=== PATIENT | female | born 1940 | race Caucasian/White ===

== ENCOUNTER → 2020-10-30 12:54 | Outpatient (CLI) | payer MEDICARE, SELFPAY ==
--- NOTE | ~2020-10-30 | CT_ITS ---
EXAMINATION: CT lung screening DATE: 10/30/2020 13:15 INDICATION: Personal history of nicotine dependence TECHNIQUE: Computed tomography (CT) of the chest was performed without intravenous contrast. The dose -length product was 38.20 mGy-cm. Automated exposure control and iterative reconstruction technique w ere employed. COMPARISON: CT dated 12/18/2019 FINDINGS: No thoracic lymphadenopathy. There is atherosclerosis. No lymphadenopathy. Heart size hoda l. No significant pleural or pericardial effusion. There is mild emphysema. There are scattered pulmo nary nodules measuring 4 mm or less. No endobronchial lesions. No endobronchial lesions. There is dep endent atelectasis. There is no apical pleural thickening/scarring. There is mild thoracic spondylosi s with accentuated kyphosis. There is mild loss of vertebral body height at T7 and T8, likely chronic . IMPRESSION: 1. Lung-RADS category 2: Benign appearance or behavior. Continue annual screening with noncontrast lo w-dose chest CT in 12 months. Reviewed, dictated and finalized at location B. IMPRESSION: 1. Lung-RADS category 2: Benign appearance or behavior. Continue annual screeni ng with noncontrast low-dose chest CT in 12 months.
== END ==
PROVIDERS: Visit Provider Nurse Practitioner Family
DX: Z87.891 Personal history of nicotine dependence (principal)
CPT/HCPCS: 71271

== ENCOUNTER → 2020-11-09 13:44 | Outpatient (CLI) | payer MEDICARE, SELFPAY ==
--- NOTE | ~2020-11-09 | US_ITS ---
US renal BI 11/09/2020 14:19 Procedure: Realtime transabdominal ultrasound of the kidneys and bladder. Indication: Chronic kidney disease. Comparison: No prior studies for comparison. Findings: Renal echotexture is normal bilaterally without hydronephrosis, contour deforming mass or r enal calculus. The right kidney measures 7.7 cm and left kidney measures 7.6 cm. Bladder within norm al limits. Impression: 1: Unremarkable renal ultrasound. No stones, masses or hydronephrosis. Reviewed, dictated and finalized at location A. Impression: 1: Unremarkable renal ultrasound. No stones, masses or hydronephrosis.
== END ==
PROVIDERS: Visit Provider Nurse Practitioner Family
DX: N18.9 Chronic kidney disease, unspecified (principal)
CPT/HCPCS: 76775

== ENCOUNTER 2021-03-15 08:27 | Outpatient (CLI) | payer MEDICARE, SELFPAY ==
[2021-03-15 09:12] LABS: Hematocrit 38.9 % (37.0-47.0); Hemoglobin 12.7 g/dL (12.0-15.0); Mean Corpuscular HGB Conc 32.6 g/dl (32-36); Mean Corpuscular Hemoglobin 30.4 pg (26-34); Mean Corpuscular Volume 93.1 fl (80-100); Mean Platelet Volume 10.1 fl (7.4-10.4); Platelet Count Result 278 k/mm3 (150-375); Red Blood Count 4.18 M/mm3 (4.2-5.4); Red Cell Distribution Width 12.7 % (11.5-14.5); White Blood Count 7.9 K/mm3 (4.5-10.0)
[2021-03-15 09:20] LABS: Add Urine Microscopic? YES; Appearance Urine Cloudy (Clear); Bacteria Urine Trace /hpf; Bilirubin Urine Negative (Negative); Blood Urine 1+ (Negative); Color Urine Yellow (Yellow); Glucose Urine UA Negative (Negative); Ketones Urine Negative (Negative); Leukocyte Esterase Ur 3+ LEU/UL (NEGATIVE); Mucus Urine Rare /lpf; Nitrate Urine Negative (Negative); Protein Urine Negative (Negative); RBC Urine 21-50 /hpf (0-2); Specific Grav Ur 1.015 (1.001-1.035); Squamous Epithelial Cell Urine Rare /hpf (Few); Urobilinogen Urine Negative mg/dL (<2.0); WBC Urine >75 /hpf (0-3)
[2021-03-15 09:29] LABS: Alanine Aminotransferase 18 U/L (4-35); Albumin Level 4.3 g/dL (3.5-5.1); Alkaline Phosphatase 79 U/L (38-126); Anion Gap 7 mmol/L (8-16); Aspartate Amino Transferase 24 U/L (14-36); Bilirubin,Total 0.5 mg/dL (0.2-1.3); Blood Urea Nitrogen 14 mg/dL (7-17); Calcium 9.4 mg/dL (8.4-10.2); Carbon Dioxide 29 mmol/L (22-30); Chloride 105 mmol/L (98-107); Cholesterol 193 mg/dL (0-200); Estimated Glomerular Filt Rate 48; Glucose 119 mg/dL (65-110); HDL Direct 65 mg/dL; Potassium 4.1 mmol/L (3.4-5.0); Sodium 141 mmol/L (137-145); Triglycerides 104 mg/dL (<150)
[2021-03-15 09:40] LABS: LDL Cholesterol Direct 95 mg/dL
[2021-03-15 10:37] LABS: Folic Acid > 20.0 ng/mL (2.76->20)
== END 2021-03-15 08:28 | disposition home or self-care (01) ==
PROVIDERS: PCP Family Medicine Sports Medicine; Visit Provider Family Medicine Sports Medicine
DX: E11.9 Type 2 diabetes mellitus without complications (principal)
CPT/HCPCS: 36415; 80053; 80061; 81001; 82607; 82746; 83036; 84443; 85027

== ENCOUNTER 2022-04-24 13:33 | Emergency (ER) | payer MEDICARE, SELFPAY ==
--- NOTE | ~2022-04-24 | XR_ITS ---
XR wrist LT min 3V DATE: 04/24/2022 14:41 INDICATION: Fall. Left wrist injury, pain, swelling TECHNIQUE: 3 views COMPARISON: None FINDINGS: There is a comminuted intra-articular fracture of the distal radius with no significant dis placement. There is approximately 30 degrees apex anterior angulation with associated dorsal inclinat ion of the distal radial articular surface. Fracture of the ulnar styloid process. Radiocarpal alignment is intact. IMPRESSION: Comminuted intra-articular fracture distal radius and fracture of ulnar styloid process Reviewed, dictated and finalized at location B. ER/TRAINING OFFICER IMPRESSION: Comminuted intra-articular fracture distal radius and fracture of u lnar styloid process
[2022-04-24 13:34] VITALS: BP 156/60; PULSE 67; RESP 18; TEMP 36.2; O2SAT 100
[2022-04-24 16:48] VITALS: BP 154/57; PULSE 67; RESP 18; TEMP 36.3; O2SAT 100
--- NOTE | 2022-04-24 17:21 | ED.UPPEXIN ---
HPI - Extremity Injury (Upper) General Chief Complaint: Extremity Injury, Upper Stated Complaint: fall- left wrist Time Seen by Provider: 04/24/22 17:20 Source: patient and family Mode of arrival: ambulatory Limitations: no limitations History of Present Illness HPI narrative: Patient is a 81-year-old female presenting to the emergency department for evaluation of left wrist pain and deformity after a ground-level fall. 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 Patient with immediate pain and swelling at the left wrist. Patient is right-hand dominant. Does have a history of right hand fracture just a few months ago which was repaired via a hand specialist at [facility]. Patient denies head trauma or loss of consciousness. She denies neck pain, chest pain or prodromal symptoms prior to the fall. Patient is reporting dull, aching moderate left wrist pain that worsens with movement. Denies numbness. Patient denies hip pain or lower extremity pain. Related Data Allergies Allergy/AdvReac Type Severity Reaction Status Date / Time No Known Allergies Allergy Verified 04/24/22 17:49 Review of Systems Review of Systems: CONSTITUTIONAL: Denies fever, chills, or sweats. EYES: Denies visual changes, redness, or discharge. ENT: Denies rhinorrhea, congestion, sore throat, or otalgia. CARDIOVASCULAR: Denies chest pain, palpitations, or edema. RESPIRATORY: Denies cough or dyspnea. GASTROINTESTINAL: Denies abdominal pain, nausea, vomiting, or diarrhea. GENITOURINARY: Denies dysuria or hematuria. SKIN: Denies rash or itching. MUSCULOSKELETAL: Denies back pain, reports left wrist pain, reports left wrist swelling NEUROLOGIC: Denies headache, numbness, or weakness. [facility] Past Medical History Medical History (Updated 04/24/22 @ 17:56 by Miriam Fajardo MD) Hypertension Right wrist fracture Surgical History Surgical History (Updated 04/24/22 @ 17:56 by Miriam Fajardo MD) H/O right wrist surgery Social History Social History (Updated 04/24/22 @ 17:56 by Miriam Fajardo MD) Smoking status: Never smoker Alcohol intake: never Substance use: never Gender identity (if verbalized by the patient): Female Exam Narrative: GENERAL: Awake, alert, conversant HEAD: Normocephalic, atraumatic. EYES: PERRLA and EOMI. ENT: Nares clear, no rhinorrhea or epistaxis. Mucous membranes moist. NECK: Supple. CHEST: No respiratory distress, breathing even and non labored HEART: Regular rate, sinus rhythm ABDOMEN:Non distended, non tender EXTREMITIES: Patient with deformity, ecchymosis of the left wrist with decreased range of motion secondary to pain. Radial pulse 2+. Intact sensation median, ulnar, radial nerve distribution. Phalanxes have intact flexion and extension throughout. No elbow pain or deformity. SKIN: Warm, dry, no rash. NEURO:No focal deficits. Alert and oriented x3, patient ambulatory with narrow base, steady gait Course Vital Signs Vital signs: Vital Signs Temperature 36.2 C L 04/24/22 13:34 Pulse Rate 67 04/24/22 13:34 Respiratory Rate 18 04/24/22 13:34 Blood Pressure 156/60 H 04/24/22 13:34 Pulse Oximetry 100 04/24/22 13:34 Oxygen Delivery Room Air 04/24/22 13:34 Temperature 36.3 C L 04/24/22 16:48 Pulse Rate 67 04/24/22 16:48 Respiratory Rate 18 04/24/22 16:48 Blood Pressure 154/57 H 04/24/22 16:48 Pulse Oximetry 100 04/24/22 16:48 Oxygen Delivery Room Air 04/24/22 13:34 Procedures Orthopedic Splinting/Casting Injury #1: Splinting/Casting Date: 04/24/22 Side: left Upper Extremity Injury Location: wrist Upper Extremity Immobilizer: sugar tong splint Splint: customized in ED OCL: sugar tong Pre-Procedure Neuro Vascular Exam: normal Post-Procedure Neur
[2022-04-24] MEDS: ONDANSETRON HCL ODT 4 MG TABLET PO (17:55)
[2022-04-24] MEDS: oxyCODONE/ACETAMINOPHEN (*CRX) 5-325 MG TABLET 1 TABLET PO (17:55)
== END 2022-04-24 18:28 | disposition home or self-care (01) ==
LOC: ANHED 17:56
PROVIDERS: Emergency Provider Emergency Medicine; PCP Family Medicine Sports Medicine
DX: S52.572A Other intraarticular fracture of lower end of left radius, initial encounter for closed fracture (principal); S52.612A Displaced fracture of left ulna styloid process, initial encounter for closed fracture; I10 Essential (primary) hypertension; W18.39XA Other fall on same level, initial encounter
CPT/HCPCS: 29125; 73110; 99284; A4565; A9270